=== PATIENT | female | born 1985 | race Caucasian/White ===

== ENCOUNTER 2019-01-06 13:43 | Outpatient (CLI) ==
[2015-02-01 13:45] VITALS: BMI 27.1
== END 2019-01-06 13:44 | disposition home or self-care (01) ==
LOC: LAB 13:43
PROVIDERS: ATTEND Nurse Practitioner Family
DX: K42.9 Umbilical hernia without obstruction or gangrene (principal)
CPT/HCPCS: 36415; 80053

== ENCOUNTER 2019-01-13 08:51 | Outpatient (CLI) ==
[2015-02-01 13:45] VITALS: BMI 27.1
--- NOTE | 2019-01-13 10:26 | CT ---
EXAM: CT of the abdomen with contrast History: Umbilical pain and tenderness. Comparison: CT abdomen pelvis 04/10/2012 Technique: Multiplanar CT images through the abdomen were obtained following administration of IV co ntrast Findings: Lung bases are clear. No acute osseous abnormalities. No gallstones identified by CT. No focal liver or splenic lesions. Pancreas is unremarkable. Adren al glands are normal. No renal masses. No hydronephrosis. No abdominal aortic aneurysm. 3.2 cm fa t containing umbilical hernia. Increased in size compared to the prior study previously measuring 1. 6 cm. Developmental intestine all narrowed patient again identified with a small bowel on the right in the colon on the left. There is mild to moderate wall thickening of the colon with adjacent hyper emia. The visualized appendix is not dilated or inflamed. Colonic diverticulosis. No lymphadenopat hy. No free air and no ascites. Impression: 1. Increasing size of fat containing umbilical hernia. No bowel obstruction. 2. Probable colitis. Etiology is most likely infectious or inflammatory. 3. Colonic diverticulosis. 4. 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
== END 2019-01-13 08:52 | disposition home or self-care (01) ==
LOC: RAD 08:51
PROVIDERS: ATTEND Nurse Practitioner Family
DX: K42.9 Umbilical hernia without obstruction or gangrene (principal)